=== PATIENT | female | born 1955 | race Caucasian/White ===

== ENCOUNTER 2019-10-27 21:16 | Emergency (ER) | payer BC ==
[~2019-10-27] VITALS: Ht 165.1 cm; Wt 60.8 kg
[2019-10-27 22:15] VITALS: BP_SYST 144
--- NOTE | 2019-10-27 22:25 | NUR ---
Patient to ER bed 6 to gown for evaluation. Side rails up.
--- NOTE | 2019-10-27 22:28 | NUR ---
Patient came to ER. C/O Laceration x today. Patient states " cleaned dishes and knife and cut myself by accident. " A/O, X4, right hand laceration ~ 2 cm, bleeding control, pain rate 10, vss.
[2019-10-27] MEDS ORDERED: DIPH-TET-PERTUS Vaccine 0.5 ML VIAL (ADACEL) I.M. ONE (22:45)
[2019-10-27] MEDS ORDERED: LIDOCAINE 1% 10 MG/ML, 20 ML MDV INJ ONE (23:45)
[2019-10-27] MEDS ORDERED: LIDOCAINE 1%, 20 ML MDV 20 ML ONE (23:54)
--- NOTE | 2019-10-28 00:32 | NUR ---
Patient has a 2 cm laceration to right hand. Dr. Ornelas applied sutures using sterile technique. Edges well approximated. Site cleansed with NSS. No bleeding noted. Pt tolerated well.
[2019-10-28 00:50] VITALS: BP_SYST 144
--- NOTE | 2019-10-28 00:50 | NUR ---
Patient given written and verbal discharge instructions and verbalizes understanding. ER MD discussed with patient the results and treatment provided. Patient in stable condition. ID arm band removed. No Rx given. Patient educated on pain management and to follow up with PMD. Pain Scale 1/10. Opportunity for questions provided and answered.
== END 2019-10-28 00:50 | disposition home or self-care (01) ==
LOC: SED 21:16
DX: S61.411A Laceration without foreign body of right hand, initial encounter (principal); W26.0XXA Contact with knife, initial encounter; Y93.89 Activity, other specified; Y92.89 Other specified places as the place of occurrence of the external cause; Y99.8 Other external cause status
CPT/HCPCS: 12001; 90471; 90715; 99283; J2001